=== PATIENT | male | born 1955 | race Caucasian/White ===

== ENCOUNTER 2020-04-05 11:17 | Outpatient (REF) | payer BC, SELFPAY ==
[2020-04-05 13:12] LABS: Estimated Average Glucose 200 mg/dL; Hemoglobin A1c % 8.6 %
== END 2020-04-05 11:18 | disposition home or self-care (01) ==
LOC: HO.MANLR 11:17
PROVIDERS: PCP Internal Medicine; Visit Provider Internal Medicine
DX: E11.9 Type 2 diabetes mellitus without complications (principal)
CPT/HCPCS: 83036

== ENCOUNTER 2020-07-12 09:41 | Outpatient (REF) | payer BC, SELFPAY ==
[2020-07-12 11:47] LABS: Estimated Average Glucose 329 mg/dL; Hemoglobin A1c % 13.1 %
== END 2020-07-12 09:42 | disposition home or self-care (01) ==
LOC: HO.MANLR 09:41
PROVIDERS: PCP Internal Medicine; Visit Provider Internal Medicine
DX: E11.9 Type 2 diabetes mellitus without complications (principal)
CPT/HCPCS: 36415; 83036

== ENCOUNTER 2020-10-12 11:49 | Outpatient (REF) | payer MEDICARE, BC, SELFPAY ==
[2020-10-12 14:21] LABS: Estimated Average Glucose 349 mg/dL; Hemoglobin A1c % 13.8 %
== END 2020-10-12 11:50 | disposition home or self-care (01) ==
LOC: HO.WFDLDS 11:49
PROVIDERS: Visit Provider Internal Medicine
DX: E11.9 Type 2 diabetes mellitus without complications (principal)
CPT/HCPCS: 36415; 83036

== ENCOUNTER 2020-10-16 11:32 | Outpatient (REF) | payer MEDICARE, BC, SELFPAY ==
[2020-10-16 14:46] LABS: Creatinine Urine 56.43 mg/dL; Microalbum/Creatinine Ratio Ur 81.5 ug/mg cr
== END 2020-10-16 11:33 | disposition home or self-care (01) ==
LOC: HO.MANLNP 11:32
PROVIDERS: PCP Internal Medicine; Visit Provider Internal Medicine
DX: E11.9 Type 2 diabetes mellitus without complications (principal)
CPT/HCPCS: 82043

== ENCOUNTER 2021-01-22 16:03 | Outpatient (REF) | payer MEDICARE, BC, SELFPAY ==
[2021-01-22 18:30] LABS: Estimated Average Glucose 341 mg/dL; Hemoglobin A1c % 13.5 %
== END 2021-01-22 16:04 | disposition home or self-care (01) ==
LOC: HO.MANLDS 16:03
PROVIDERS: PCP Internal Medicine; Visit Provider Internal Medicine
DX: E11.9 Type 2 diabetes mellitus without complications (principal)
CPT/HCPCS: 36415; 83036

== ENCOUNTER 2021-04-16 15:19 | Outpatient (REF) | payer MEDICARE, BC, SELFPAY ==
[2021-04-17 03:26] LABS: Estimated Average Glucose 324 mg/dL; Hemoglobin A1c % 12.9 %
== END 2021-04-16 15:20 | disposition home or self-care (01) ==
LOC: HO.MANLDS 15:19
PROVIDERS: PCP Internal Medicine; Visit Provider Internal Medicine
DX: E11.9 Type 2 diabetes mellitus without complications (principal)
CPT/HCPCS: 36415; 83036

== ENCOUNTER 2021-11-27 16:00 | Outpatient (REF) | payer MEDICARE, BC, SELFPAY ==
[2021-11-27 19:36] LABS: Estimated Average Glucose 298 mg/dL
[2021-11-27 19:39] LABS: Alanine Aminotransferase 25 U/L (0-40); Albumin Level 4.4 g/dL (3.5-5.0); Alkaline Phosphatase 111 U/L (39-117); Anion Gap 12 (12-20); Aspartate Amino Transferase 18 U/L (5-37); Bilirubin Total 0.4 mg/dL (0.0-1.0); Blood Urea Nitrogen 15 mg/dL (9-16); Calcium 9.6 mg/dL (8.4-10.2); Carbon Dioxide 28 mmol/L (22-29); Chloride 100 mmol/L (96-108); Cholesterol 164 mg/dL; Estimated Glomerular Filt Rate > 60; Glucose Random 343 mg/dL (60-115); HDL Cholesterol 29 mg/dL; LDL Cholesterol Calculated 92 mg/dl; Potassium 4.7 mmol/L (3.3-5.1); Sodium 135 mmol/L (135-145); Triglycerides 219 mg/dL
[2021-11-27 19:41] LABS: Creatinine Urine 71.44 mg/dL; Microalbum/Creatinine Ratio Ur 131.5 ug/mg cr
== END 2021-11-27 16:01 | disposition home or self-care (01) ==
LOC: HO.MANLDS 16:00
PROVIDERS: Visit Provider Internal Medicine
DX: E11.9 Type 2 diabetes mellitus without complications (principal)
CPT/HCPCS: 36415; 80053; 80061; 82043; 83036

== ENCOUNTER 2022-02-25 08:35 | Outpatient (REF) | payer MEDICARE, BC, SELFPAY ==
[2022-02-25 11:11] LABS: Estimated Average Glucose 278 mg/dL; Hemoglobin A1c % 11.3 %
== END 2022-02-25 08:36 | disposition home or self-care (01) ==
LOC: HO.MANLDS 08:35
PROVIDERS: Visit Provider Internal Medicine
DX: E11.9 Type 2 diabetes mellitus without complications (principal)
CPT/HCPCS: 36415; 83036

== ENCOUNTER 2022-05-29 11:45 | Outpatient (REF) | payer MEDICARE, BC, SELFPAY ==
[2022-05-29 14:21] LABS: Estimated Average Glucose 226 mg/dL; Hemoglobin A1c % 9.5 %
== END 2022-05-29 11:46 | disposition home or self-care (01) ==
LOC: HO.MANLDS 11:45
PROVIDERS: Visit Provider Internal Medicine
DX: E11.9 Type 2 diabetes mellitus without complications (principal)
CPT/HCPCS: 36415; 83036

== ENCOUNTER 2022-10-02 11:48 | Outpatient (REF) | payer MEDICARE, BC, SELFPAY ==
[2022-10-02 14:58] LABS: Estimated Average Glucose 183 mg/dL
== END 2022-10-02 11:49 | disposition home or self-care (01) ==
LOC: HO.MANLDS 11:48
PROVIDERS: Visit Provider Internal Medicine
DX: E11.9 Type 2 diabetes mellitus without complications (principal)
CPT/HCPCS: 36415; 83036

== ENCOUNTER 2023-02-03 11:22 | Outpatient (REF) | payer MEDICARE, BC, SELFPAY ==
[2023-02-03 13:27] LABS: Estimated Average Glucose 232 mg/dL; Hemoglobin A1c % 9.7 % (<6.0)
== END 2023-02-03 11:23 | disposition home or self-care (01) ==
LOC: HO.10HDL 11:22
PROVIDERS: Visit Provider Internal Medicine
DX: E11.9 Type 2 diabetes mellitus without complications (principal)
CPT/HCPCS: 36415; 83036

== ENCOUNTER 2023-05-30 11:22 | Outpatient (REF) | payer MEDICARE, BC, SELFPAY ==
[2023-05-30 14:04] LABS: Estimated Average Glucose 309 mg/dL; Hemoglobin A1c % 12.4 % (<6.0)
== END 2023-05-30 11:23 | disposition home or self-care (01) ==
LOC: HO.10HDL 11:22
PROVIDERS: Visit Provider Internal Medicine
DX: E11.9 Type 2 diabetes mellitus without complications (principal)
CPT/HCPCS: 36415; 83036

== ENCOUNTER 2023-06-03 14:04 | Outpatient (REF) | payer MEDICARE, BC, SELFPAY | END 2023-06-03 14:05 | disposition home or self-care (01) | LOC: HO.LNP 14:04 | PROVIDERS: Visit Provider Physician Assistant | DX: I96 Gangrene, not elsewhere classified (principal) | CPT/HCPCS: 87070; 87205 ==

== ENCOUNTER 2023-09-05 11:00 | Outpatient (REF) | payer MEDICARE, BC, SELFPAY | END 2023-09-05 11:01 | disposition home or self-care (01) | LOC: HO.MANLNP 11:00 | PROVIDERS: Visit Provider Physician Assistant | DX: L03.116 Cellulitis of left lower limb (principal) | CPT/HCPCS: 87070; 87205 ==